=== PATIENT | male | born 1985 | race Asian ===

== ENCOUNTER → 2018-02-11 | Outpatient (CLI) | payer OTHER | LOC: M WUC 15:55 | DX: S62.657A Nondisplaced fracture of middle phalanx of left little finger, initial encounter for closed fracture (principal) | CPT/HCPCS: 73140 ==

== ENCOUNTER → 2018-06-08 | Outpatient (REF) | payer OTHER ==
[2018-06-08 11:53] LABS: BASO % 0.5 % (0.0-1.0); EOS # 0.3 10^3/uL (0.0-0.50); EOS % 3.4 % (0.0-3.0); HEMATOCRIT 47.7 % (42.0-52.0); IMMATURE GRANULOCYTE % 0.5 % (0-3.0); LYMPH # 2.1 10^3/uL (1.5-4.5); LYMPH % 28.7 % (24.0-44.0); MEAN CORPUSCULAR HEMOGLOBIN 29.7 pg (27.0-33.0); MEAN CORPUSCULAR HGB CONC 33.5 g/dl (32.0-36.5); MEAN CORPUSCULAR VOLUME 88.5 fl (80.0-96.0); MONO # 0.5 10^3/uL (0.0-0.8); MONO % 6.7 % (0.0-5.0); NEUTROPHILS # 4.5 10^3/uL (1.8-7.7); NEUTROPHILS % 60.2 % (36.0-66.0); PLATELET COUNT, AUTOMATED 348 10^3/uL (150-450); RED BLOOD COUNT 5.39 10^6/uL (4.30-6.10); RED CELL DISTRIBUTION WIDTH 12.9 % (11.5-14.5); WHITE BLOOD COUNT 7.5 10^3/uL (4.0-10.0)
[2018-06-08 11:55] LABS: APPEARANCE, URINE CLEAR (CLEAR); BACTERIA, URINE AUTO NEGATIVE (NEGATIVE); BILIRUBIN, URINE AUTO NEGATIVE (NEGATIVE); BLOOD, URINE BLOOD NEGATIVE (NEGATIVE); COLOR, URINE COLORLESS (YELLOW); GLUCOSE, URINE (UA) AUTO NEGATIVE (NEGATIVE); KETONE, URINE AUTO NEGATIVE (NEGATIVE); LEUKOCYTE ESTERASE, URINE AUTO NEGATIVE (NEGATIVE); NITRITE, URINE AUTO NEGATIVE (NEGATIVE); PROTEIN, URINE AUTO NEGATIVE (NEGATIVE); RBC, URINE AUTO 1 /HPF (0-3); SPECIFIC GRAVITY URINE AUTO 1.003 (1.002-1.035); SQUAMOUS EPITHELIAL CELL UR AU 0 /HPF (0-6); UROBILINOGEN, URINE AUTO 0.2 mg/dL (0.0-2.0); WBC, URINE AUTO 0 /HPF (0-3)
[2018-06-08 13:29] LABS: ALBUMIN 4.5 GM/DL (3.2-5.2); ALBUMIN/GLOBULIN RATIO 1.61 (1.00-1.93); ALKALINE PHOSPHATASE 94 U/L (45-117); ALT/SGPT 32 U/L (12-78); ANION GAP 8 MEQ/L (8-16); AST/SGOT 19 U/L (7-37); BILIRUBIN,TOTAL 0.5 MG/DL (0.2-1.0); BLOOD UREA NITROGEN 17 MG/DL (7-18); CALCIUM LEVEL 9.9 MG/DL (8.5-10.1); CARBON DIOXIDE LEVEL 31 MEQ/L (21-32); CHLORIDE LEVEL 105 MEQ/L (98-107); CHOLESTEROL LEVEL 275 MG/DL (<200); CREATININE FOR GFR 0.92 MG/DL (0.70-1.30); GLOMERULAR FILTRATION RATE > 60.0 (>60); GLUCOSE, FASTING 94 MG/DL (70-100); HDL CHOLESTEROL 50 MG/DL (>40); LDL CHOLESTEROL 160 MG/DL (<100); NON-HDL-C 225 MG/DL; POTASSIUM SERUM 4.7 MEQ/L (3.5-5.1); SODIUM LEVEL 144 MEQ/L (136-145); TOTAL PROTEIN 7.3 GM/DL (6.4-8.2); TRIGLYCERIDES LEVEL 326 MG/DL (<150)
[2018-06-08 13:46] LABS: TOTAL 25(OH) VITAMIN D 26.8 NG/ML (30.0-100.0)
[2018-06-08 13:47] LABS: PTH INTACT 28.9 PG/ML (18.5-88.0)
[2018-06-08 14:44] LABS: CHLAMYDIA DNA AMPLIFICATION NEGATIVE (NEGATIVE); GC DNA AMPLIFICATION NEGATIVE (NEGATIVE)
== END ==
LOC: M SFHCPLAZ 08:07
DX: Z82.49 Family history of ischemic heart disease and other diseases of the circulatory system (principal); N50.811 Right testicular pain; E78.5 Hyperlipidemia, unspecified; E55.9 Vitamin D deficiency, unspecified
CPT/HCPCS: 80053

== ENCOUNTER → 2018-10-04 | Outpatient (REF) | payer OTHER ==
[2018-10-04 10:27] LABS: HEMOGLOBIN A1c 5.6 %
[2018-10-04 11:01] LABS: ALBUMIN 4.4 GM/DL (3.2-5.2); ALT/SGPT 26 U/L (12-78); BILIRUBIN,TOTAL 0.7 MG/DL (0.2-1.0); BLOOD UREA NITROGEN 13 MG/DL (7-18); CALCIUM LEVEL 9.6 MG/DL (8.5-10.1); CARBON DIOXIDE LEVEL 31 MEQ/L (21-32); CHLORIDE LEVEL 103 MEQ/L (98-107); CHOLESTEROL LEVEL 275 MG/DL (<200); CHOLESTEROL RISK RATIO 5.188 (<5); CREATININE FOR GFR 1.04 MG/DL (0.70-1.30); GLOMERULAR FILTRATION RATE > 60.0 (>60); GLUCOSE, FASTING 85 MG/DL (70-100); HDL CHOLESTEROL 53 MG/DL (>40); LDL CHOLESTEROL 194 MG/DL (<100); NON-HDL-C 222 MG/DL; POTASSIUM SERUM 4.5 MEQ/L (3.5-5.1); SODIUM LEVEL 140 MEQ/L (136-145); TOTAL 25(OH) VITAMIN D 35.3 NG/ML (30.0-100.0); TOTAL PROTEIN 7.3 GM/DL (6.4-8.2); TRIGLYCERIDES LEVEL 139 MG/DL (<150)
== END ==
LOC: M SFHCPLAZ 08:18
PROVIDERS: ATTEND Nurse Practitioner Family
DX: E78.5 Hyperlipidemia, unspecified (principal); E55.9 Vitamin D deficiency, unspecified

== ENCOUNTER → 2019-03-17 | Outpatient (REF) | payer OTHER | LOC: M LAB REF 17:31 | PROVIDERS: ATTEND Physician Assistant | DX: R21 Rash and other nonspecific skin eruption (principal) ==

== ENCOUNTER → 2019-03-17 | Outpatient (REF) | payer OTHER | LOC: M LAB REF 09:05 | PROVIDERS: ATTEND Physician Assistant | DX: R21 Rash and other nonspecific skin eruption (principal) ==

== ENCOUNTER → 2019-03-25 | Outpatient (CLI) | payer OTHER ==
--- NOTE | 2019-03-25 17:30 | REP ---
Clinical: Trauma. Technique: AP, lateral, bilateral oblique views right hand . Findings: The osseous structures and joint spaces are intact and normal. There is no evidence for acute fracture or dislocation. Surrounding soft tissues are unremarkable. No subcutaneous emphysema or radiodense foreign body. Impression: No acute fracture or dislocation. Electronically Signed by Tyron Maxwell MD 03/25/2019 05:22 P
== END ==
LOC: M ADAMS 17:09
PROVIDERS: ATTEND Physician Assistant
DX: M79.641 Pain in right hand (principal)

== ENCOUNTER → 2019-04-02 | Outpatient (REF) | payer OTHER ==
[2019-04-02 11:25] LABS: CHOLESTEROL RISK RATIO 5.38 (<5)
== END ==
LOC: M SFHCPLAZ 08:22
PROVIDERS: ATTEND Nurse Practitioner Family
DX: E78.5 Hyperlipidemia, unspecified (principal)

== ENCOUNTER → 2019-06-29 | Outpatient (REF) | payer OTHER ==
[2019-06-29 21:53] LABS: INFLUENZA A AMPLIFICATION NEGATIVE (NEGATIVE); INFLUENZA B AMPLIFICATION NEGATIVE (NEGATIVE)
== END ==
LOC: M LAB REF 13:33
PROVIDERS: ATTEND Nurse Practitioner Family
DX: R50.9 Fever, unspecified (principal); M79.10 Myalgia, unspecified site

== ENCOUNTER → 2019-10-15 | Outpatient (CLI) | payer OTHER ==
[2019-10-15 10:29] LABS: HEMOGLOBIN A1c 5.3 %
[2019-10-15 10:49] LABS: ALBUMIN 4.6 GM/DL (3.2-5.2); ALT/SGPT 52 U/L (12-78); BILIRUBIN,TOTAL 0.4 MG/DL (0.2-1.0); BLOOD UREA NITROGEN 18 MG/DL (7-18); CALCIUM LEVEL 9.6 MG/DL (8.5-10.1); CARBON DIOXIDE LEVEL 30 MEQ/L (21-32); CHLORIDE LEVEL 104 MEQ/L (98-107); CHOLESTEROL LEVEL 272 MG/DL (<200); CREATININE FOR GFR 1.07 MG/DL (0.70-1.30); GLOMERULAR FILTRATION RATE > 60.0 (>60); GLUCOSE, FASTING 98 MG/DL (70-100); HDL CHOLESTEROL 50 MG/DL (>40); NON-HDL-C 222 MG/DL; POTASSIUM SERUM 4.7 MEQ/L (3.5-5.1); SODIUM LEVEL 140 MEQ/L (136-145); TOTAL PROTEIN 7.5 GM/DL (6.4-8.2); TRIGLYCERIDES LEVEL 408 MG/DL (<150)
== END ==
LOC: M PLALAB 08:31
PROVIDERS: ATTEND Nurse Practitioner Family
DX: E78.5 Hyperlipidemia, unspecified (principal)

== ENCOUNTER 2025-06-01 11:45 | Emergency (ER) | payer OTHER ==
[~2025-06-01] VITALS: Ht 172.7 cm; Wt 101.3 kg
[2025-06-01] MEDS: LIDOCAINE W/EPINEPHrine 1% 20 ML VIAL SC ONE (14:20)
[2025-06-01] MEDS: TETANUS/DIPHTH/ACEL. PERTUSSIS 0.5 ML SYR IM.IMMUN ONE (15:26)
[2025-06-01] MEDS ORDERED: HOME MED LIST COMPLETE! XX SCH (16:10)
[2025-06-01] MEDS: FLUORESCEIN OPHTH 1 MG STRIP OU ONE (16:10)
[2025-06-01] MEDS: TETRACAINE 0.5% OPHTH SOLN 4ML OU ONE (16:10)
[2025-06-01] MEDS ORDERED: ERYT5OIN25 OU (16:38)
[2025-06-01] MEDS ORDERED: ERYT5OIN25 OP (16:38)
[2025-06-01] MEDS ORDERED: AMOX875T2 PO (16:38)
[2025-06-01] MEDS: ERYTHROMYCIN OPHTH OINT OU ONE (17:12)
[2025-06-01 17:23] VITALS: BP 125/92; TEMP 98; O2SAT 97
== END 2025-06-01 17:24 | disposition home or self-care (01) ==
LOC: M ED 11:45
DX: S00.212A Abrasion of left eyelid and periocular area, initial encounter (principal); S51.811A Laceration without foreign body of right forearm, initial encounter; S60.811A Abrasion of right wrist, initial encounter; V86.55XA Driver of 3- or 4- wheeled all-terrain vehicle (ATV) injured in nontraffic accident, initial encounter; Z79.2 Long term (current) use of antibiotics; Z23 Encounter for immunization; Y92.9 Unspecified place or not applicable; Y93.89 Activity, other specified; Y99.9 Unspecified external cause status

== ENCOUNTER → 2025-06-05 | Outpatient (CLI) | payer OTHER ==
[~2025-06-05] MED LIST: AMOX875T2 PO; ERYT5OIN25 OP; ERYT5OIN25 OU
[2025-06-05 14:06] LABS: BASO # 0.1 10^3/uL (0.0-0.2); BASO % 0.7 % (0.0-1.0); EOS # 0.2 10^3/uL (0.0-0.5); EOS % 3.2 % (0.0-3.0); LYMPH # 1.6 10^3/uL (1.5-5.0); LYMPH % 21.5 % (24.0-44.0); MONO # 0.5 10^3/uL (0.0-0.8); MONO % 7.0 % (2.0-8.0); NEUTROPHILS # 4.9 10^3/uL (1.5-8.5); NEUTROPHILS % 67.2 % (36.0-66.0); PLATELET COUNT, AUTOMATED 392 10^3/uL (150-450)
[2025-06-05 14:07] LABS: TOTAL 25(OH) VITAMIN D 34.6 NG/ML (20.0-100.0)
[2025-06-05 14:09] LABS: FREE T4 1.57 NG/DL (0.89-1.76)
[2025-06-05 14:10] LABS: VITAMIN B12 LEVEL 720 PG/ML (211-911)
[2025-06-05 14:11] LABS: ALT/SGPT 48 U/L (7.0-40); AST/SGOT 17 U/L (<34); CALCIUM LEVEL 10.0 MG/DL (8.5-10.1); CARBON DIOXIDE LEVEL 32 MMOL/L (20-31); CHLORIDE LEVEL 102 MMOL/L (98-107); CHOLESTEROL LEVEL 216 MG/DL (<200); CHOLESTEROL RISK RATIO 4.38 (<5); CREATININE FOR GFR 0.96 MG/DL (0.70-1.30); GLOMERULAR FILTRATION RATE > 90.0 (>60); LDL CHOLESTEROL 131.3 MG/DL (<100); NON-HDL-C 166.7 MG/DL; POTASSIUM SERUM 4.8 MMOL/L (3.5-5.1); SODIUM LEVEL 144 MMOL/L (136-145); TRIGLYCERIDES LEVEL 177 MG/DL (<150)
== END ==
LOC: M PLALAB 09:48
PROVIDERS: ATTEND Physician Assistant Medical
DX: F32.A Depression, unspecified (principal); Z13.220 Encounter for screening for lipoid disorders